=== PATIENT | female | born 2000 | race African-American/Black ===

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

== ENCOUNTER 2020-05-31 14:28 | Emergency (ER) | payer OTHER ==
[2020-06-01 12:31] LABS: SARS-CoV-2 MS2 Positive; SARS-CoV-2 N Gene Negative; SARS-CoV-2 S Gene Negative; SARS-CoV-2 by NAA Not Detected (NotDetected); SARS-CoV-2 orf1ab Negative
== END 2020-05-31 14:50 | disposition home or self-care (01) ==
LOC: ERS 14:28
DX: R09.89 Other specified symptoms and signs involving the circulatory and respiratory systems (principal); Z20.828 Contact with and (suspected) exposure to other viral communicable diseases
CPT/HCPCS: 87635; 99283; U0003

== ENCOUNTER 2022-03-06 23:00 | Emergency (ER) | payer BC, MEDICAID, SELFPAY | END 2022-03-07 00:45 | disposition home or self-care (01) | LOC: ERS 23:00 | DX: S93.601A Unspecified sprain of right foot, initial encounter (principal); X58.XXXA Exposure to other specified factors, initial encounter ==

== ENCOUNTER 2022-05-04 10:17 | Emergency (ER) | payer OTHER, BC ==
[2022-05-04] MEDS ORDERED: Acetaminophen 325 MG TAB ONE (12:38)
[2022-05-04] MEDS ORDERED: Ibuprofen 800 MG TAB ONE (12:38)
== END 2022-05-04 12:43 | disposition home or self-care (01) ==
LOC: ERS 10:17
DX: S52.201A Unspecified fracture of shaft of right ulna, initial encounter for closed fracture (principal); S00.83XA Contusion of other part of head, initial encounter; W01.10XA Fall on same level from slipping, tripping and stumbling with subsequent striking against unspecified object, initial encounter
CPT/HCPCS: 25530